=== PATIENT | male | born 1940 | race Caucasian/White ===

== ENCOUNTER 2017-11-09 08:52 | Outpatient (CLI) ==
--- NOTE | 2017-11-09 09:59 | CT ---
EXAM: CT right hip without contrast HISTORY: Bilateral hip pain COMPARISON: None TECHNIQUE: CT right hip performed without intravenous contrast. Coronal and sagittal reformatted im ages obtained. FINDINGS: Small bilateral fat containing inguinal hernias. Prostate moderately enlarged. Colonic d iverticulosis. Atherosclerosis. Bone mineralization normal. Right sacroiliac joint intact. No fra cture or dislocation. Mild osteoarthritis right hip with mild joint space narrowing and marginal ost eophyte formation. IMPRESSION: 1. No fracture or dislocation. 2. Mild osteoarthritis right hip.
--- NOTE | 2017-11-09 10:04 | CT ---
EXAM: CT left hip without contrast HISTORY: Bilateral hip pain COMPARISON: None TECHNIQUE: CT left hip performed without intravenous contrast. Coronal and sagittal reformatted kelvin ges obtained. FINDINGS: Small bilateral fat containing inguinal hernias. Prostate moderately enlarged. Colonic d iverticulosis. Atherosclerosis. Bone mineralization normal. Left sacroiliac joint intact. No frac ture or dislocation. Mild osteoarthritis left hip with mild joint space narrowing and marginal osteo phyte formation. IMPRESSION: 1. No fracture or dislocation. 2. Mild osteoarthritis left hip.
== END 2017-11-09 08:53 | disposition home or self-care (01) ==
LOC: RAD 08:52
PROVIDERS: ATTEND Internal Medicine
DX: M25.552 Pain in left hip (principal); M25.551 Pain in right hip

== ENCOUNTER 2018-07-26 14:39 | Outpatient (CLI) | END 2018-07-26 14:51 | disposition short-term general hospital (02) | LOC: AMBL 14:39 | PROVIDERS: ATTEND Internal Medicine | DX: R53.1 Weakness (principal); R47.9 Unspecified speech disturbances ==

== ENCOUNTER 2021-08-02 10:26 | Inpatient (IN) ==
[2021-08-02] MEDS ORDERED: TYLENOL PO STA (10:32)
[2021-08-02] MEDS ORDERED: TORADOL IVP STA (10:32)
[2021-08-02] MEDS ORDERED: SODIUM CHLORIDE 1,000 ML IV STA (10:32)
[2021-08-02 10:38] LABS: BORDETELLA PARAPERTUSSIS (PCR) NOT DETECTED (NOT DETECT); BORDETELLA PERTUSSIS (PCR) NOT DETECTED (NOT DETECT); CHLAMYDIA PNEUMONIAE (PCR) NOT DETECTED (NOT DETECT); CORONAVIRUS 229E (PCR) NOT DETECTED (NOT DETECT); CORONAVIRUS HKU1 (PCR) NOT DETECTED (NOT DETECT); CORONAVIRUS NL63 (PCR) NOT DETECTED (NOT DETECT); CORONAVIRUS OC43 (PCR) NOT DETECTED (NOT DETECT); HUMAN METAPNEUMOVIRUS (PCR) NOT DETECTED (NOT DETECT); HUMAN RHINOVIRUS/ENTEROV (PCR) NOT DETECTED (NOT DETECT); INFLUENZA B (PCR) NOT DETECTED (NOT DETECT); MYCOPLASMA PNEUMONIAE (PCR) NOT DETECTED (NOT DETECT); PARAINFLUENZA VIRUS 1 (PCR) NOT DETECTED (NOT DETECT); PARAINFLUENZA VIRUS 2 (PCR) NOT DETECTED (NOT DETECT); PARAINFLUENZA VIRUS 3 (PCR) NOT DETECTED (NOT DETECT); PARAINFLUENZA VIRUS 4 (PCR) NOT DETECTED (NOT DETECT); RESPIRATORY SYNCYTIAL V (PCR) NOT DETECTED (NOT DETECT); SARS_COV_2 (PCR) NOT DETECTED (NOT DETECT)
--- NOTE | 2021-08-02 10:45 | ED.PDOC ---
General ED Provider: Dr. NEERU FABIAN Chief Complaint: Weakness Stated Complaint: Pt presents with weakness and possible fever. Pt has been visiting his daily who was admitted for flu. Today he did not show up to visit and his daughter went to check on him. She found him on the ground unable to get up. He denies any significant trauma or pain. He feels weak all over without any focal weakness. He is hot to touch with a possible fever but he is unsure. He has mild SOB. Denies any CP/AP/N/V. Nothing else has made his sxs better or worse and they are mild in nature. Time Seen by Provider: 08/02/21 10:32 Primary Care Provider: BETH ISMPSON Nursing and Triage Documentation Reviewed and Agree: Yes Does patient meet sepsis criteria?: No If yes, has appropriate treatment been initiated?: No System Inflammatory Response Syndrome: Not Applicable Sepsis Protocol: For patient's 13 years and over: Temp is 96.8 and below OR 101 and greater Pulse >90 BPM Resp >20/minute Acutely Altered Mental Status Are patient's symptoms suggestive of a new infection, such as: -Pneumonia -Skin, Soft Tissue -Endocarditis -UTI -Bone, Joint Infection -Implantable Device -Acute Abdominal Infection -Wound Infection -Meningitis -Blood Stream Catheter Infection -Unknown Review of Systems Review Of Systems Constitutional: Reports Fever (Possible) Eyes: Reports No symptoms Ears, Nose, Mouth, Throat: Reports No symptoms Respiratory: Reports Short of air Cardiac: Reports No symptoms GI: Reports No symptoms : Reports No symptoms Musculoskeletal: Reports No symptoms Skin: Reports No symptoms Neurological: Reports Weakness (General weakness without focal weakness) Endocrine: Reports No symptoms Hematologic/Lymphatic: Reports No symptoms All Other Systems: Reviewed and Negative [facility] Medical History (Updated 08/02/21 @ 12:52 by NEERU FABIAN) Arthritis Diabetes Elevated cholesterol Heart disease Sensorineural hearing loss (SNHL) of both ears Stroke Family History (System 10/03/19 @ 08:01 by EBENEZER FIGUEREDO) FATHER Heart problem Social History (System 10/03/19 @ 08:01 by EBENEZER FIGUEREDO) Smoking and tobacco status: Never smoker Alcohol intake: never Substance use type: does not use Patito/latter day: JEW Surgical History (Updated 10/03/19 @ 08:01 by EBENEZER FIGUEREDO) H/O heart bypass surgery History of angioplasty History of appendectomy History of cholecystectomy Physical Exam Physical Exam Appearance: Reports Well-appearing, No pain distress and Well-nourished Ill-appearing: None Pain Distress: None Eyes: Reports ANNE, EOMI and Conjunctiva clear ENT: Reports Not Examined Neck: Supple Respiratory: Reports Airway patent, Breath sounds clear, Breath sounds equal and Respirations nonlabored Cardiovascular: Reports RRR, Pulses normal, No rub and No murmur GI/: Reports Soft, Nontender, No masses, Bowel sounds normal and No Organomegaly Musculoskeletal: Reports Normal strength, ROM intact, No edema and No calf tenderness Skin: Reports Dry, Normal color and Other (Hot to touch) Neurological: Reports Sensation intact, Motor intact (Gerenal weakness without focal weakness), Reflexes intact, Cranial nerves intact, Alert and Oriented Psychiatric: Reports Affect appropriate and Mood appropriate Interpretation EKG Interpretation Time of EKG #1: 10:45 Rate: Normal Rhythm: Sinus Ectopy: None ST Segment: Other (Bifascicular block with resultant ST abnormalities. No findings to suggest acute NM) Critical Care Note Critical Care Note Total Critical Care Time (mins): 0 Course Course Hematology/Chemistry: 08/02/21 11:00 08/02/21 11:00 Orders, Labs, Meds: Lab Review 08/02/21 08/02/21 08/02/21 10:31 11:00 11:00 WBC 7.60 RBC 5.56 Hgb 16.2 Hct 49.6 MCV 89.2 MCH 29.1 MCHC 32.7 RDW Coeff of Chriss 13.8 Plt Count 146 Immature Gran % (Auto) 0.5 Neut % (Auto) 83.6 H Lymph % (Auto) 6.6 L [place] % (Auto) 8.3 Eos % (Auto) 0.1 Baso % (Auto) 0.9 Neut # (Auto) 6.4 Lymph # (Auto) 0.5 L [place] # (Auto) 0.6 Eos # (Auto) 0.0 Baso # (Auto) 0.1 Immature Gran # (Auto) 0.0 Sodium 138.1 Potassium 4.16 Chloride 106.1 Carbon Dioxide 20.2 L Anion Gap 15.96 BUN 19.4 Creatinine 1.03 Estimated GFR (MDRD) 69.00 BUN/Creatinine Ratio 18.83 Glucose 207.3 H Calcium 8.79 Magnesium 1.36 L Total Bilirubin 0.56 AST 33.4 ALT 29.2 Alkaline Phosphatase 120.3 H Total Creatine Kinase 225.4 H CK-MB (CK-2) 4.330 H CK-MB (CK-2) % 1.9200 Troponin I 0.126 H Total Protein 7.16 Albumin 4.10 Globulin 3.06 Albumin/Globulin Ratio 1.33 Amylase 40.1 Lipase 32.4 Adenovirus (PCR) Not detected B. pertussis DNA (PCR) Not detected B.parapertussis DNA PCR Not detected C. pneumoniae DNA (PCR) Not detected Coronavirus OC43 (PCR) Not detected Coronavirus HKU1 (PCR) Not detected Coronavirus 229E (PCR) Not detected Coronavirus NL63 (PCR) Not detected Human Metapneumovir PCR Not detected Influenza A (H3) PCR Detected H Influenza B (RT-PCR) Not detected M. pneumoniae (PCR) Not detected Parainfluenza 1 (PCR) Not detected Parainfluenza 2 (PCR) Not detected Parainfluenza 3 (PCR) Not detected Parainfluenza 4 (PCR) Not detected RSV (PCR) Not detected Entero/Rhino (PCR) Not detected SARS-CoV-2 (PCR) Not detected Orders Category Date Time Status [facility] ADMISSION 08/02/21 12:43 Active EKG-(ED ONLY) Stat CARDIO 08/02/21 10:32 Completed TELEMETRY MONITORING TELE CARE 08/02/21 12:44 Active AMYLASE Stat LAB 08/02/21 11:00 Completed BLOOD CULTURE (ED ONLY) Stat LAB 08/02/21 Ordered CBC W/ AUTO DIFF Stat LAB 08/02/21 11:00 Completed COMPREHENSIVE METABOLIC PANEL Stat LAB 08/02/21 11:00 Completed CREATINE KINASE Stat LAB 08/02/21 11:00 Completed LIPASE Stat LAB 08/02/21 11:00 Completed MAGNESIUM Stat LAB 08/02/21 11:00 Completed RESPIRATORY PANEL 2.1 (PCR) Stat LAB 08/02/21 10:31 Completed TROPONIN I Stat LAB 08/02/21 11:00 Completed URINALYSIS C & S IF INDICATED Stat LAB 08/02/21 10:33 Uncollected Acetaminophen [Tylenol] MEDS 08/02/21 10:32 Discontinued 650 mg PO ONCE STA Ceftriaxone/D5w 1 gm Premix [Rocephin 1 gm/50 ml D5w] MEDS 08/02/21 12:43 Active 1 gm in 50 ml IV ONCE Dexamethasone Sod Phosphate [Decadron] 10 mg MEDS 08/02/21 12:43 Active 0.9 % Sodium Chloride [Sodium Chloride] 50 ml IV ONCE Doxycycline Hyclate Inj [Doxy-100] 100 mg MEDS 08/02/21 12:46 Active 0.9 % Sodium Chloride [Sodium Chloride 100Ml] 100 ml IV ONCE Ketorolac Tromethamine [Toradol] MEDS 08/02/21 10:32 Discontinued 15 mg IVP ONCE STA Magnesium Sulfate Vial [Magnesium Sulfate 1 gm/2 ml MEDS 08/02/21 12:22 Discontinued Vial] 2 gm .ROUTE .STK-MED ONE Magnesium Sulfate Vial [Magnesium Sulfate 1 gm/2 ml MEDS 08/02/21 11:44 Discontinued Vial] 2 gm 0.9 % Sodium Chloride [Sodium Chloride 100Ml] 100 ml IV ONCE Oseltamivir Phosphate [Tamiflu] MEDS 08/02/21 12:43 Discontinued 75 mg PO ONCE STA Sodium Chloride 0.9% [Sodium Chloride] 1,000 ml MEDS 08/02/21 10:32 D iscontinued IV BOLUS CHEST, 1V AP ONLY Stat RADS 08/02/21 10:32 Completed Medications Generic Name Dose Route Start Last Admin Trade Name Freq PRN Reason Stop Dose Admin CEFTRIAXONE/D5W 1 GM PREMIX 1 gm in 50 mls @ 75 mls/hr 08/02/21 12:43 Rocephin 1 Gm/50 Ml D5w IV 08/02/21 13:22 ONCE ONE Dexamethasone Sodium Phosphate 51 mls @ 75 mls/hr 08/02/21 12:43 10 mg/ Sodium Chloride IV 08/02/21 13:23 ONCE STA Doxycycline Hyclate 100 mg/ 100 mls @ 50 mls/hr 08/02/21 12:46 Sodium Chloride IV 08/02/21 14:45 ONCE STA Discontinued Medications Generic Name Dose Route Start Last Admin Trade Name Freq PRN Reason Stop Dose Admin Acetaminophen 650 mg 08/02/21 10:32 08/02/21 10:42 Acetaminophen 325 Mg Tablet PO 08/02/21 10:33 650 mg ONCE STA Administration Sodium Chloride 1,000 mls @ 1,000 mls/hr 08/02/21 10:32 08/02/21 10:42 Sodium Chloride IV 08/02/21 11:31 1,000 mls/hr BOLUS STA Administration Magnesium Sulfate 2 gm/ Sodium 104 mls @ 400 mls/hr 08/02/21 11:44 08/02/21 12:35 Chloride IV 08/02/21 12:00 400 mls/hr ONCE STA Administration Ketorolac Tromethamine 15 mg 08/02/21 10:32 08/02/21 10:42 Ketorolac Tromethamine 30 Mg/Ml Vial IVP 08/02/21 10:33 15 mg ONCE STA Administration Oseltamivir Phosphate 75 mg 08/02/21 12:43 Oseltamivir Phosphate 6 Mg/1 Ml Susp PO 08/02/21 12:44 ONCE STA Vital Signs: Temp Pulse Resp BP Pulse Ox 08/02/21 10:28 100.2 F H 98 H 30 H 137/90 88 L Discharge Plan Discharge Patient Disposition: ADMITTED INPATIENT Discharge Problem: Influenza A, Hypoxia, Hypomagnesemia, Weakness Prescriptions: No Action atorvastatin [Lipitor] 40 MG tablet 80 mg PO DAILY 0RF gabapentin [Neurontin] 600 MG tablet 1,200 mg PO 1400 0RF Lantus U-100 Insulin 100 UNIT/1 ML solution 70 unit subcut BEDTIME 0RF isosorbide mononitrate 30 MG tablet extended release 24 hr 30 mg PO DAILY 0RF clopidogrel [Plavix] 75 MG tablet 75 mg PO DAILY 0RF aspirin 81 MG tablet,delayed release (DR/EC) 81 mg PO DAILY 0RF cholecalciferol (vitamin D3) [Vitamin D3] 1,000 UNIT capsule 1,000 unit PO DAILY 0RF gabapentin [Neurontin] 600 mg Tablet 600 mg PO DAILY 0RF pantoprazole 40 mg tablet,delayed release (DR/EC) 40 mg PO DAILY 0RF lisinopril 10 mg tablet 10 mg PO DAILY 0RF metoprolol tartrate [Lopressor] 50 mg Tablet 50 mg PO DAILY 0RF Lantus U-100 Insulin 100 unit/mL Cartridge 70 unit SUBCUT DAILY PRN (Reason: >150 blood sugar in the morning) 0RF ED Provider: NEERU FABIAN Condition: Stable Physician Progress Note: 12:15 PM: I reviewed pt results. CBC is unremarkable. Chems show a glucose of 207 and Mg of 1.36. CCK is 225 and Trop of 0.126. Flu A is positive. His O2 sat on 2 L NC is around 93%. Given his hypoxia, the flu and his weakness, he will need to be admitted. I spoke with Dr. Simpson and given no pulmonary coverage, he recommends the patient be transferred to another facility with a higher level of care. Pt is agreeable. I will call to [place] to try and get an accepting hospital. 12:50 PM: The hospitals in [place] are full. Daughter and patient would prefer to stay here. On discussion with the patient, he is a DNR. I spoke with Dr. Simpson again and he agrees to admit the patient at this time.
[2021-08-02 11:06] LABS: BASOPHILS # (AUTO) 0.1 K/uL (0-0.2); BASOPHILS % (AUTO) 0.9 % (0.0-3.0); EOSINOPHILS % (AUTO) 0.1 % (0.0-7.0); HEMATOCRIT 49.6 % (42.0-52.0); HEMOGLOBIN 16.2 g/dl (14.0-18.0); IMMATURE GRANULOCYTE % (AUTO) 0.5 % (0.0-5.0); LYMPHOCYTES # (AUTO) 0.5 K/uL (0.60-3.4); LYMPHOCYTES % (AUTO) 6.6 (10.0-50.0); MEAN CORPUSCULAR HEMOGLOBIN 29.1 pg (27.0-31.0); MEAN CORPUSCULAR HGB CONC 32.7 (31.8-35.4); MEAN CORPUSCULAR VOLUME 89.2 fl (80.0-94.0); MONOCYTES # (AUTO) 0.6 K/uL (0.4-2.0); MONOCYTES % (AUTO) 8.3 (0-10); NEUTROPHILS # (AUTO) 6.4 K/ul (2.0-6.9); NEUTROPHILS % (AUTO) 83.6 % (42.2-75.2); PLATELET COUNT 146 10^3/uL (140-440); RDW COEFFICIENT OF VARIATION 13.8 % (11.6-14.8); RED BLOOD COUNT 5.56 10^6/ul (4.70-6.10)
[2021-08-02 11:09] LABS: ALANINE AMINOTRANSFERASE 29.2 U/L (0-50); ALBUMIN 4.1 g/dL (3.5-5.0); ALKALINE PHOSPHATASE 120.3 U/L (56-119); AMYLASE 40.1 U/L (30-110); ASPARTATE AMINO TRANSFERASE 33.4 U/L (17-59); BILIRUBIN,TOTAL 0.56 mg/dL (0.2-1.3); BLOOD UREA NITROGEN 19.4 mg/dL (9-20); CALCIUM 8.79 mg/dL (8.4-10.2); CARBON DIOXIDE 20.2 mmol/L (22-30.0); CHLORIDE 106.1 mmol/L (98-107); CREATINE KINASE 225.4 U/L (55-170); CREATININE 1.03 mg/dL (0.60-1.10); GLUCOSE 207.3 mg/dL (74-106); LIPASE 32.4 U/L (23-300); MAGNESIUM 1.36 mg/dL (1.6-2.3); POTASSIUM 4.16 mmol/L (3.5-5.1); SODIUM 138.1 mmol/L (134.5-145); TOTAL PROTEIN 7.16 g/dL (6.3-8.2)
--- NOTE | 2021-08-02 11:18 | DI ---
EXAM: One-view chest. HISTORY: Cough. COMPARISON: 11/15/2015 chest x-ray. FINDINGS: Stable 1.5 CM left mid lung density. There are increased patchy opacities present within the left lower lung. The remaining lungs are clear. The cardiac silhouette is upper limits normal. There is no pulmonary edema identified. Stable aguilera otomy wires. No acute abnormality involving the osseous structures. IMPRESSION: Nonspecific density in the left lower lung which could represent atelectasis and/or pneu monia. There is no pleural effusion.
[2021-08-02 11:32] LABS: CREATINE KINASE MB 4.33 ng/ml (0.0-2.38); TROPONIN I 0.126 ng/ml (0.0000-0.120)
[2021-08-02] MEDS ORDERED: MAGNESIUM SULFATE 1 GM/2 ML VIAL 2 GM in SODIUM CHLORIDE 100ML 100 ML IV STA (11:44)
[2021-08-02 11:57] LABS: ADENOVIRUS (PCR) NOT DETECTED (NOT DETECT); INFLUENZA A H3 (PCR) DETECTED (NOT DETECT)
[2021-08-02] MEDS ORDERED: MAGNESIUM SULFATE 1 GM/2 ML VIAL ONE (12:22)
[2021-08-02] MEDS ORDERED: DECADRON IV STA (12:43)
[2021-08-02] MEDS ORDERED: SODIUM CHLORIDE IV STA (12:43)
[2021-08-02] MEDS ORDERED: ROCEPHIN 1 GM/50 ML D5W 1 GM/50 ML BAG IV ONE (12:43)
[2021-08-02] MEDS ORDERED: TAMIFLU PO STA (12:43)
[2021-08-02] MEDS ORDERED: DOXY-100 100 MG in SODIUM CHLORIDE 100ML 100 ML IV STA (12:46)
[2021-08-02] MEDS ORDERED: DECADRON IVP ONE (13:00)
[2021-08-02 14:36] VITALS: BMI 31.9
[2021-08-02] MEDS ORDERED: NON-FORMULARY MEDICATION (Insulin Glargine 100 unit/mL Cartridge) SUBCUT PRN (14:57)
[2021-08-02] MEDS ORDERED: LANTUS SUBCUT PRN (16:33)
[2021-08-02 16:35] LABS: BILIRUBIN,URINE Negative (NEGATIVE); CLARITY,URINE Clear (CLEAR); COLOR,URINE Yellow (YELLOW); GLUCOSE, URINE (UA) Negative (NEGATIVE); KETONES,URINE Negative (NEGATIVE); LEUKOCYTE ESTERASE ,URINE Negative (NEGATIVE); NITRITE,URINE Negative (NEGATIVE); PH,URINE 5.5 (5-9); PROTEIN,URINE 2+ (NEGATIVE); URINE, BLOOD Trace-lysed (NEGATIVE); UROBILINOGEN,URINE 0.2 (0.2)
[2021-08-02 16:44] LABS: MUCUS,URINE 1+ (NOT PRESENT); RENAL EPITHELIAL CELLS,URINE 0-2 (NOT PRESENT); SQUAMOUS EPITHELIAL CELL,UR NOT PRESENT (0-5); URINE WBC, MICROSCOPIC 0-2 (0-2)
[2021-08-02] MEDS: VITAMIN D PO SCH (17:25)
[2021-08-02] MEDS: LOPRESSOR PO SCH (17:25)
[2021-08-02] MEDS: ASPIRIN EC PO SCH (17:25)
[2021-08-02] MEDS: PLAVIX PO SCH (17:25)
[2021-08-02] MEDS: LIPITOR PO SCH (17:25)
[2021-08-02] MEDS: PROTONIX PO SCH (17:26)
[2021-08-02] MEDS: IMDUR PO SCH (17:26)
[2021-08-02] MEDS: ZESTRIL PO SCH (17:26)
[2021-08-02] MEDS: NEURONTIN PO SCH (17:35)
[2021-08-02] MEDS: LANTUS SUBCUT SCH (20:59)
[2021-08-02] MEDS: TAMIFLU PO SCH (20:59)
[2021-08-02] MEDS: HUMULIN R SUBCUT PRN (21:05)
[2021-08-02] MEDS: DOXY-100 100 MG in SODIUM CHLORIDE 100ML 100 ML IV SCH (21:53)
[2021-08-03] MEDS: PROTONIX PO SCH (05:51)
[2021-08-03] MEDS: HUMULIN R SUBCUT PRN ×4 (06:12→21:18)
[2021-08-03 06:35] LABS: BASOPHILS % (AUTO) 0.1 % (0.0-3.0); HEMATOCRIT 45.3 % (42.0-52.0); IMMATURE GRANULOCYTE % (AUTO) 0.4 % (0.0-5.0); LYMPHOCYTES # (AUTO) 1.3 K/uL (0.60-3.4); LYMPHOCYTES % (AUTO) 15.7 (10.0-50.0); MEAN CORPUSCULAR HEMOGLOBIN 29.4 pg (27.0-31.0); MEAN CORPUSCULAR HGB CONC 33.1 (31.8-35.4); MEAN CORPUSCULAR VOLUME 88.6 fl (80.0-94.0); MONOCYTES # (AUTO) 0.6 K/uL (0.4-2.0); MONOCYTES % (AUTO) 7.5 (0-10); NEUTROPHILS # (AUTO) 6.2 K/ul (2.0-6.9); NEUTROPHILS % (AUTO) 76.3 % (42.2-75.2); PLATELET COUNT 162 10^3/uL (140-440); RDW COEFFICIENT OF VARIATION 14.1 % (11.6-14.8); RED BLOOD COUNT 5.11 10^6/ul (4.70-6.10); WHITE BLOOD COUNT 8.09 K/ul (4.2-10.2)
[2021-08-03 06:46] LABS: ALANINE AMINOTRANSFERASE 32.9 U/L (0-50); ALBUMIN 4.19 g/dL (3.5-5.0); ALKALINE PHOSPHATASE 104.2 U/L (56-119); ASPARTATE AMINO TRANSFERASE 42.6 U/L (17-59); BILIRUBIN,TOTAL 0.5 mg/dL (0.2-1.3); CALCIUM 8.33 mg/dL (8.4-10.2); CHLORIDE 105.7 mmol/L (98-107); CREATININE 1.13 mg/dL (0.60-1.10); GLUCOSE 310.2 mg/dL (74-106); POTASSIUM 4.34 mmol/L (3.5-5.1); SODIUM 137.5 mmol/L (134.5-145); TOTAL PROTEIN 7.59 g/dL (6.3-8.2)
[2021-08-03] MEDS ORDERED: LANTUS SUBCUT SCH (09:00)
[2021-08-03] MEDS: ROCEPHIN 1 GM/50 ML D5W 1 GM/50 ML BAG IV SCH (09:13)
[2021-08-03] MEDS: TAMIFLU PO SCH ×2 (09:13→21:35)
[2021-08-03] MEDS: ASPIRIN EC PO SCH (09:13)
[2021-08-03] MEDS: NEURONTIN PO SCH ×2 (09:13→13:57)
[2021-08-03] MEDS: LIPITOR PO SCH (09:14)
[2021-08-03] MEDS: ZESTRIL PO SCH (09:14)
[2021-08-03] MEDS: VITAMIN D PO SCH (09:14)
[2021-08-03] MEDS: LOPRESSOR PO SCH (09:15)
[2021-08-03] MEDS: PLAVIX PO SCH (09:15)
[2021-08-03] MEDS: IMDUR PO SCH (09:15)
[2021-08-03] MEDS: DECADRON IM SCH (09:15)
[2021-08-03] MEDS: DOXY-100 100 MG in SODIUM CHLORIDE 100ML 100 ML IV SCH ×2 (10:06→21:23)
[2021-08-03] MEDS ORDERED: NEURONTIN PO SCH (14:00)
[2021-08-03] MEDS: LANTUS SUBCUT SCH (21:22)
[2021-08-04 05:15] VITALS: BP 133/75; TEMP 96.5
[2021-08-04] MEDS: PROTONIX PO SCH (05:37)
[2021-08-04 05:40] LABS: BASOPHILS % (AUTO) 0.1 % (0.0-3.0); HEMOGLOBIN 14.1 g/dl (14.0-18.0); IMMATURE GRANULOCYTE % (AUTO) 0.4 % (0.0-5.0); LYMPHOCYTES # (AUTO) 1.8 K/uL (0.60-3.4); LYMPHOCYTES % (AUTO) 16.8 (10.0-50.0); MEAN CORPUSCULAR HEMOGLOBIN 29.7 pg (27.0-31.0); MEAN CORPUSCULAR HGB CONC 33.6 (31.8-35.4); MEAN CORPUSCULAR VOLUME 88.4 fl (80.0-94.0); MONOCYTES # (AUTO) 0.9 K/uL (0.4-2.0); MONOCYTES % (AUTO) 8.1 (0-10); NEUTROPHILS # (AUTO) 7.8 K/ul (2.0-6.9); NEUTROPHILS % (AUTO) 74.6 % (42.2-75.2); PLATELET COUNT 158 10^3/uL (140-440); RDW COEFFICIENT OF VARIATION 14.2 % (11.6-14.8); RED BLOOD COUNT 4.75 10^6/ul (4.70-6.10); WHITE BLOOD COUNT 10.44 K/ul (4.2-10.2)
[2021-08-04 05:54] LABS: ALANINE AMINOTRANSFERASE 27.7 U/L (0-50); ALBUMIN 3.64 g/dL (3.5-5.0); ALKALINE PHOSPHATASE 92.4 U/L (56-119); ASPARTATE AMINO TRANSFERASE 37.7 U/L (17-59); BILIRUBIN,TOTAL 0.38 mg/dL (0.2-1.3); BLOOD UREA NITROGEN 34.5 mg/dL (9-20); CALCIUM 8.53 mg/dL (8.4-10.2); CARBON DIOXIDE 20.8 mmol/L (22-30.0); CHLORIDE 111.1 mmol/L (98-107); CREATININE 1.03 mg/dL (0.60-1.10); GLUCOSE 181.9 mg/dL (74-106); POTASSIUM 4.21 mmol/L (3.5-5.1); SODIUM 140.7 mmol/L (134.5-145); TOTAL PROTEIN 6.8 g/dL (6.3-8.2)
[2021-08-04] MEDS: HUMULIN R SUBCUT PRN (06:09)
[2021-08-04] MEDS: DOXY-100 100 MG in SODIUM CHLORIDE 100ML 100 ML IV SCH (08:37)
[2021-08-04] MEDS: NEURONTIN PO SCH (08:40)
[2021-08-04] MEDS: DECADRON IM SCH (08:40)
[2021-08-04] MEDS: LIPITOR PO SCH (08:40)
[2021-08-04] MEDS: ASPIRIN EC PO SCH (08:41)
[2021-08-04] MEDS: ZESTRIL PO SCH (08:41)
[2021-08-04] MEDS: IMDUR PO SCH (08:41)
[2021-08-04] MEDS: PLAVIX PO SCH (08:42)
[2021-08-04] MEDS: VITAMIN D PO SCH (08:42)
[2021-08-04] MEDS: LOPRESSOR PO SCH (08:42)
[2021-08-04] MEDS ORDERED: TAMIFLU PO SCH (09:00)
[2021-08-04] MEDS: ROCEPHIN 1 GM/50 ML D5W 1 GM/50 ML BAG IV SCH (10:51)
--- NOTE | 2021-08-06 10:01 | ECHO2D ---
Date of Exam: 08/04/2021 Ordering Physician: DR. BETH SIMPSON Room #: 103 Reason for Echo: CAD, CABG, SOB M-Mode Normal Adult Results LV Dimensions Normal Adult Results AoV Opening excursions >1.6 >1.6 LVEDD-base- 3.5-5.8 5.7 Ao root dimensions 2.0-3.7 3.6 LVESD-base- 3.1-4.6 L. Atrium dimensions 1.9-3.8 5.1 Post. Wall thickness 0.8-1.1 1.3 IV septum (thickness) 0.7-1.2 1.5 Post. Wall excursion 0.72-1.3 NORMAL Septal motion 0.1 Systolic motion R. Ventricular cavity 1.5-2.0 3.0 LVEF 60% 35-40% Paradoxical septal wall motion NORMAL 2-D : HYPOKINETIC SEPTAL WALL--ENLARGED LEFT ATRIAL AND RIGHT VENTRICLE CAVITIES--NO EFFUSION, NO THROMBUS, CALCIFIC AORTIC VALVE LEAFLETS, BORDERLINE LEFT VENTRICLE CAVITY ENLARGEMENT M-MODE: MV: NORMAL AV: CALCIFIC AORTIC VALVES--NO STENOSIS TV: NORMAL PV: NORMAL CHAMBER SIZE: ENLARGED LEFT ATRIAL AND RIGHT VENTRICLE CAVITIES, BORDERLINE LEFT VENTRICLE CAVITY WALL MOTION: HYPOKINETIC SEPTAL WALL PERICARDIUM: NORMAL INTERPRETATION: 1. LEFT VENTRICLE HYPERTROPHY WITH ENLARGED LEFT ATRIAL CAVITY 2. ENLARGED RIGHT AND LEFT VENTRICLE CAVITIES 3. HYPOKINETIC SEPTAL WALL WITH EJECTION FRACTION 35 TO 40% 4. CALCIFIC AORTIC VALVES--NO STENOSIS MTDD
--- NOTE | 2021-08-06 14:50 | DS ---
DATE OF SERVICE: 08/04/21 FINAL DIAGNOSIS: 1. Influenza A with exacerbation of COPD with hypoxemia 2. Diabetes Mellitus 3. Dehydration 4. Coronary artery disease with bypass surgery 5. CHF 6. Hypertension 7. Dyslipidemia DISCHARGE INSTRUCTIONS: Discharge home. The patient is instructed to come back in 5-7 days. Continue home medications. MEDICATIONS AT DISCHARGE: Aspirin Atorvastatin Vitamin D3 Clopidogrel Gabapentin Glargine Lantus insulin Isosorbide Dinitrate Lisinopril Metoprolol Pantoprazole NEW PRESCRIPTIONS: Doxycycline 100mg twice a day for 5 days Prednisone 10mg daily for 5 days Tamiflu 75mg twice a day for 6 days DIET INSTRUCTIONS: Diabetic ACTIVITY: Resume as tolerated HOSPITAL COURSE: 81 year old white male hospitalized with cough and congestion and hypoxemia. The patient had Influenza A. The patient was treated aggressively with Rocephin and Doxycycline, condition improved. He was also given steroid along with inhalers and Tamiflu. Hydration status improved. Appetite improved. At the time of discharge coughing was much less. He was up and about. Initially the patient was sort of fatigued that he was not able to even get up on his own which has never happened to him before. Oxygen saturation at the time of discharged was 94%. He was up and about. Labs on discharge hgb 14, hct 42, WBC 10,000 normal differential, creatinine 1, BUN 34, potassium 4.2, glucose 181, Influenza A positive and SARS negative. Echo showed hypokinetic to akinetic septum with normal LV size and enlarged LA cavity, normal LV cavity. Fraction was close to 40-45%. The patient is DNR. TIME SPENT: More than 60 minutes. [facility]
--- NOTE | 2021-08-06 14:50 | PN ---
08/02/21: Level 5 08/03/21: Intermediate 08/04/21: D as in discharge MTDD
--- NOTE | 2021-08-06 14:54 | PN ---
DATE OF SERVICE: 08/04/21 DISCHARGE NOTE SUBJECTIVE: 81 year old white male hospitalized with influenza A, hypoxemia, exacerbation of COPD. The patient's condition has improved. REVIEW OF SYSTEMS: CONSTITUTIONAL: No night sweats. No fatigue, malaise, lethargy. No fever or chills. HEENT: Eyes: No visual changes. No eye pain. No eye discharge. ENT: No runny nose. No epistaxis. No sinus pain. No sore throat. No odynophagia. No congestion. RESPIRATORY: No cough, no congestion. No hemoptysis. No shortness of breath. CARDIOVASCULAR: No angina symptoms. No CHF symptoms. No atypical chest pain for CAD. No palpitations. No PND. No orthopnea. GASTROINTESTINAL: No abdominal pain. No nausea or vomiting. No diarrhea or constipation. No hematemesis. No hematochezia. GENITOURINARY: No urgency. No frequency. No dysuria. No hematuria. No obstructive symptoms. No discharge. No pain. No significant abnormal bleeding. MUSCULOSKELETAL: No musculoskeletal pain; no joint swelling. NEUROLOGICAL: No headache. No neck pain. No syncope. No seizures. No dizziness. PSYCHIATRIC: Not anxious. No depression. No suicidal thoughts. No homicidal thoughts. SKIN: No rash. No lesions. No wounds. ENDOCRINE: No unexplained weight loss. No weight gain. HEMATOLOGIC/LYMPHATIC: No anemia. No purpura. No petechiae. No prolonged or excessive bleeding. No palpable lymph nodes. PHYSICAL EXAMINATION: VITAL SIGNS: Temperature 96.5, pulse 94, respiratory rate 18, blood pressure 133/75 and pulse ox 94%. on room air. HEENT: Head normocephalic, atraumatic. Eyes: Extraocular muscles are intact. Pupils are equal, round and reactive to light and accommodation. Ears: No lesions. Nose appeared normal. Throat: No exudate or erythema. NECK: Supple. No JVD, no carotid bruit. No lymphadenopathy or thyromegaly. LUNGS: Clear to auscultation. Percussion note normal. Chest symmetrical. HEART: S1, S2, no S3. No murmurs. No cyanosis or clubbing. No ascites. Pulses: Dorsalis pedis and posterior tibial pulses +1 to +2 bilaterally. ABDOMEN: Soft. Nontender. Bowel sounds active. No CVA tenderness. No mass felt. EXTREMITIES: No edema. Full range of motion of all extremities, equal. NEUROLOGIC: No focal deficit. Cranial nerves II through XII are grossly intact. No headache. No double vision. SKIN: Not dry. Intact. Turgor - normal. LYMPHATIC: No palpable lymph nodes/no lymphedema. MUSCULOSKELETAL: Normal joints with no swelling. Muscle tone is normal. ASSESSMENT: 1. Influenza with exacerbation of COPD seems to have resolved PLAN: 1. Discharge the patient 2. Doxycycline 3. Prednisone 4. Tamiflu 5. The patient advised to continue the same medications as before 6. See in 5-7 days. TIME SPENT: More than 30 minutes. Plan and coordination of the patient's care discussed in the presence of nurse. CAROLEE
--- NOTE | 2021-08-13 11:07 | HP ---
DATE OF SERVICE: 08/02/21 SUBJECTIVE: 81 year old white male hospitalized with influenza A with hypoxemia. The patient had cough and congestion. In fact the patient says that he has been doing well for a couple of days. This morning he had practically no strength. He went to get up He went to get up and started falling which he has never done in his life before. was hospitalized and discharged today after she was being treated for influenza A. He was positive for influenza A. REVIEW OF SYSTEMS: CONSTITUTIONAL: No night sweats. Extreme fatigue and weakness. No fever or chills. HEENT: Eyes: No visual changes. No eye pain. No eye discharge. ENT: No runny nose. No epistaxis. No sinus pain. No sore throat. No odynophagia. No congestion. RESPIRATORY: No cough, no congestion. No hemoptysis. Shortness of breath on exertion. CARDIOVASCULAR: No angina symptoms. No CHF symptoms. No atypical chest pain for CAD. No palpitations. No PND. No orthopnea. GASTROINTESTINAL: No abdominal pain. No nausea or vomiting. No diarrhea or constipation. No hematemesis. No hematochezia. Poor appetite. GENITOURINARY: No urgency. No frequency. No dysuria. No hematuria. No obstructive symptoms. No discharge. No pain. No significant abnormal bleeding. MUSCULOSKELETAL: No musculoskeletal pain; no joint swelling. NEUROLOGICAL: No headache. No neck pain. No syncope. No seizures. No dizziness. PSYCHIATRIC: Not anxious. No depression. No suicidal thoughts. No homicidal thoughts. SKIN: No rash. No lesions. No wounds. ENDOCRINE: No unexplained weight loss. No weight gain. HEMATOLOGIC/LYMPHATIC: No anemia. No purpura. No petechiae. No prolonged or excessive bleeding. No palpable lymph nodes. ALLERGIES: Clindamycin Codeine Azithromycin PERSONAL/FAMILY/SOCIAL HISTORY: The patient is . Lives with the . Does all activity of daily living. Nonsmoker. No alcohol abuse. MEDICATIONS: Aspirin Atorvastatin Vitamin D3 Clopidogrel Gabapentin Glargine Insulin 70 units the patient takes it according to what his blood sugar is. It changes every day Isosorbide Lisinopril Metoprolol Pantoprazole PHYSICAL EXAMINATION: VITAL SIGNS: Temperature 98.3, pulse 79, respiratory rate 20, blood pressure 137/90 and pulse ox 94% on 2 liters. HEENT: Head normocephalic, atraumatic. Eyes: Extraocular muscles are intact. Pupils are equal, round and reactive to light and accommodation. Ears: No lesions. Nose appeared normal. Throat: No exudate or erythema. NECK: Supple. No JVD, no carotid bruit. No lymphadenopathy or thyromegaly. LUNGS: Decreased breath sounds. Good air entry. Clear to auscultation. Percussion note normal. Chest symmetrical. HEART: S1, S2, no S3. No murmurs. No cyanosis or clubbing. No ascites. Pulses: Dorsalis pedis and posterior tibial pulses +1 to +2 bilaterally. ABDOMEN: Soft. Nontender. Bowel sounds active. No CVA tenderness. No mass felt. EXTREMITIES: No edema. Full range of motion of all extremities, equal. NEUROLOGIC: No focal deficit. Cranial nerves II through XII are grossly intact. No headache. No double vision. SKIN: Not dry. Intact. Turgor - normal. LYMPHATIC: No palpable lymph nodes/no lymphedema. MUSCULOSKELETAL: Normal joints with no swelling. Muscle tone is normal. LABS: EKG sinus rhythm. Left bundle branch LVH. Hgb 16, hct 49, WBC 7,600 normal differential, creatinine 1, BUN 19, potassium 4.1. CKMB 4, Troponin 9. GFR 69cc per minute. COVID negative. ASSESSMENT: 1. Influenza A with dehydration, fatigued, tired feeling 2. Bronchitis 3. Diabetes Mellitus 4. Hypertension 5. Dyslipidemia 6. Severe endstage coronary artery disease 7. History of MIs 8. Bypass surgery with stent placement PLAN: 1. Start Tamiflu 2. Rocephin and Doxycycline 3. Steroids with dexamethasone 4mg IM daily 4. The patient is DNR 5. Examined the patient and the patient's condition has improved. He was feeling somewhat better. MTDD
--- NOTE | 2021-08-13 11:29 | PN ---
DATE OF SERVICE: 08/03/21 SUBJECTIVE: 81 year old white male hospitalized with weakness, fatigue and inability to get up. The patient had influenza A. He also has some hypoxemia. His condition has improved remarkably. He is able to walk on his own and going to the bathroom. That was never a problem and has improved remarkably. REVIEW OF SYSTEMS: CONSTITUTIONAL: No night sweats. No fatigue, malaise, lethargy. No fever or chills. HEENT: Eyes: No visual changes. No eye pain. No eye discharge. ENT: No runny nose. No epistaxis. No sinus pain. No sore throat. No odynophagia. No congestion. RESPIRATORY: Mild cough and congestion. No hemoptysis. No shortness of breath. CARDIOVASCULAR: No angina symptoms. No CHF symptoms. No atypical chest pain for CAD. No palpitations. No PND. No orthopnea. GASTROINTESTINAL: No abdominal pain. No nausea or vomiting. No diarrhea or constipation. No hematemesis. No hematochezia. GENITOURINARY: No urgency. No frequency. No dysuria. No hematuria. No obstructive symptoms. No discharge. No pain. No significant abnormal bleeding. MUSCULOSKELETAL: No musculoskeletal pain; no joint swelling. NEUROLOGICAL: No headache. No neck pain. No syncope. No seizures. No dizziness. PSYCHIATRIC: Not anxious. No depression. No suicidal thoughts. No homicidal thoughts. SKIN: No rash. No lesions. No wounds. ENDOCRINE: No unexplained weight loss. No weight gain. HEMATOLOGIC/LYMPHATIC: No anemia. No purpura. No petechiae. No prolonged or excessive bleeding. No palpable lymph nodes. PHYSICAL EXAMINATION: VITAL SIGNS: Temperature 97.4, pulse 71, respiratory rate 20, blood pressure 140/78 and pulse ox 96%, blood pressure 140/78. HEENT: Head normocephalic, atraumatic. Eyes: Extraocular muscles are intact. Pupils are equal, round and reactive to light and accommodation. Ears: No lesions. Nose appeared normal. Throat: No exudate or erythema. NECK: Supple. No JVD, no carotid bruit. No lymphadenopathy or thyromegaly. LUNGS: Decreased breath sounds. Good air entry. No wheezing. Clear to auscultation. Percussion note normal. Chest symmetrical. HEART: S1, S2, no S3. No murmurs. No cyanosis or clubbing. No ascites. Pulses: Dorsalis pedis and posterior tibial pulses +1 to +2 bilaterally. ABDOMEN: Soft. Nontender. Bowel sounds active. No CVA tenderness. No mass felt. EXTREMITIES: No edema. Full range of motion of all extremities, equal. NEUROLOGIC: No focal deficit. Cranial nerves II through XII are grossly intact. No headache. No double vision. SKIN: Not dry. Intact. Turgor - normal. LYMPHATIC: No palpable lymph nodes/no lymphedema. MUSCULOSKELETAL: Normal joints with no swelling. Muscle tone is normal. LABS: Hgb 16, hct 49, WBC 7,600 normal differential, creatinine 1, BUN 19, potassium 4.1 ASSESSMENT: 1. Bronchitis/sinusitis seems to be resolving 2. Influenza A seems to be under control . PLAN: 1. Continue same antibiotics, Tamiflu, Rocephin and Dexamethasone. CONDITION: Improving CARDIOVASCULAR STATUS: Stable. The patient's says that his shortness of breath as usual. The patient is DNR. TIME SPENT: More than 30 minutes. Plan and coordination of the patient's care discussed in the presence of nurse. CAROLEE
== END 2021-08-04 12:58 | disposition home or self-care (01) | DRG 194 ==
LOC: ED 10:26 → MEDSURG A 12:49
PROVIDERS: ADMIT Internal Medicine; ATTEND Internal Medicine
DX: R09.02 Hypoxemia; R53.1 Weakness; Z51.81 Encounter for therapeutic drug level monitoring; J09.X2 Influenza due to identified novel influenza A virus with other respiratory manifestations; Z95.5 Presence of coronary angioplasty implant and graft; E83.42 Hypomagnesemia; J44.1 Chronic obstructive pulmonary disease with (acute) exacerbation; I10 Essential (primary) hypertension; I25.2 Old myocardial infarction; I50.9 Heart failure, unspecified; Z20.822 Contact with and (suspected) exposure to COVID-19; E78.5 Hyperlipidemia, unspecified; E11.9 Type 2 diabetes mellitus without complications; J20.9 Acute bronchitis, unspecified; E86.0 Dehydration; Z79.899 Other long term (current) drug therapy; I50.84 End stage heart failure